=== PATIENT | female | born 1935 | race Caucasian/White ===

== ENCOUNTER 2018-09-21 16:59 | Observation (INO) ==
[2018-09-21 17:58] LABS: Basophils % 0.4 %; Eosinophils # 0.2 K/mcL (0.0-0.6); Eosinophils % 2.2 %; Hematocrit 34.3 % (35.3-44.9); Hemoglobin 11.3 g/dL (11.5-15.4); Immature Granulocytes % 0.2 % (0-4); Lymphocytes % 25.2 %; Mean Corpuscular HGB Conc 32.9 g/dL (31.6-35.5); Mean Corpuscular Hemoglobin 32.6 pg (28.0-33.3); Mean Corpuscular Volume 98.8 fL (83.0-100.0); Mean Platelet Volume 8.6 fL (9.4-12.4); Monocytes # 0.7 K/mcL (0.0-1.3); Monocytes % 9.2 %; Platelet Count 320 K/mcL (140-400); Red Blood Count 3.47 M/mcL (3.82-4.97); Red Cell Distribution Width 13.8 % (11.5-14.5); Segmented Neutrophils % 62.8 %
[2018-09-21 18:20] LABS: Alanine Aminotransferase 17 Units/L (7-52); Albumin 3.7 g/dL (3.5-5.7); Albumin/Globulin Ratio 1.5 (1.1-2.2); Alkaline Phosphatase 46 Units/L (34-104); Aspartate Amino Transferase 23 Units/L (13-39); BUN/Creatinine Ratio 18 (6-26); Bilirubin,Direct 0.1 mg/dL (0.0-0.2); Bilirubin,Indirect 0.3 mg/dL (0.0-1.2); Bilirubin,Total 0.4 mg/dL (0.3-1.0); Blood Urea Nitrogen 29 mg/dL (8-23); Calcium 9.2 mg/dL (8.6-10.3); Carbon Dioxide 25 mEq/L (23-29); Chloride 99 mEq/L (98-107); Globulin 2.4 g/dL (2.4-3.5); Glucose 84 mg/dL (70-105); Osmolality,Calculated 279 (280-300); Potassium 4.1 mEq/L (3.5-5.1); Sodium 132 mEq/L (136-145); Total Protein 6.1 g/dL (6.4-8.9); Troponin I < 0.03 ng/mL (< 0.04); eGFR For Non-African Americans 31 (> 60)
[2018-09-21] MEDS ORDERED: 0.9 % Sodium Chloride 1,000 ML IVC ONE (18:57)
--- NOTE | 2018-09-21 18:57 | Emergency Department Note ---
Disposition Clinical Impression: Head injury, Chest pain, Frequent falls Disposition: Admitted As Inpatient Condition: Good Referrals: Rich Clayton DO [Primary Care Provider] - General Adult HPI - General Chief complaint: ED Arrhythmia/Palpitations Stated complaint: "sob,abnormal ekg sent from [facility]" Time Seen by Provider: 09/21/18 17:16 Source: patient, family Limitations: no limitations - History of Present Illness Pain Scale: 0 - Related Data Allergies Allergy/AdvReac Type Severity Reaction Status Date / Time clarithromycin [From Biaxin] AdvReac Hives Verified 09/21/18 17:07 ibuprofen [From Advil] AdvReac Hives Verified 09/21/18 17:07 Penicillins AdvReac Hives Verified 09/21/18 17:07 sulfamethoxazole AdvReac Hives Verified 09/21/18 17:07 [From Bactrim] trimethoprim [From Bactrim] AdvReac Hives Verified 09/21/18 17:07 Past Medical History - Past Medical History Medical history: Reports: COPD, dementia, GERD, hyperlipidemia, hypertension, myocardial infarction Psychiatric history: Reports: anxiety, depression - Social History Smoking Status: Never smoker Smokeless Tobacco Status: No Alcohol use: Reports: none Drug use: Reports: none, unknown Physical Exam - General Limitations: no limitations General appearance: alert Course Vital Signs Temperature 98.4 F 09/21/18 17:03 Pulse Rate 63 09/21/18 17:03 Respiratory Rate 16 09/21/18 17:03 Blood Pressure 90/58 09/21/18 17:03 O2 Sat by Pulse Oximetry 99 09/21/18 17:03 Temperature 98.4 F 09/21/18 17:11 Pulse Rate 63 09/21/18 17:11 Respiratory Rate 16 09/21/18 17:11 Blood Pressure 113/65 09/21/18 17:19 O2 Sat by Pulse Oximetry 99 09/21/18 17:11 Oxygen Delivery Oxygen Delivery Room Air Medical Decision Making - Lab Data Result diagrams: 09/21/18 17:48 09/21/18 17:48 Lab Results 09/21/18 09/21/18 09/21/18 Range/Units 17:48 17:48 17:48 WBC 8.0 (4.3-11.1) K/mcL RBC 3.47 L (3.82-4.97) M/mcL Hgb 11.3 L (11.5-15.4) g/dL Hct 34.3 L (35.3-44.9) % MCV 98.8 (83.0-100.0) fL MCH 32.6 (28.0-33.3) pg MCHC 32.9 (31.6-35.5) g/dL RDW 13.8 (11.5-14.5) % Plt Count 320 (140-400) K/mcL MPV 8.6 L (9.4-12.4) fL Immature Gran % 0.2 (0-4) % Seg Neutrophils % 62.8 % Lymphocytes % 25.2 % Monocytes % 9.2 % Eosinophils % 2.2 % Basophils % 0.4 % Neutrophils # 5.0 (1.6-8.9) K/mcL Lymphocytes # 2.0 (0.6-4.6) K/mcL Monocytes # 0.7 (0.0-1.3) K/mcL Eosinophils # 0.2 (0.0-0.6) K/mcL Basophils # 0.0 (0.0-0.2) K/mcL Sodium 132 L (136-145) mEq/L Potassium 4.1 (3.5-5.1) mEq/L Chloride 99 (98-107) mEq/L Carbon Dioxide 25 (23-29) mEq/L BUN 29 H (8-23) mg/dL Creatinine 1.58 H (0.60-1.20) mg/dL Est GFR ( Amer) 38 L (> 60) Est GFR (Non-Af Amer) 31 L (> 60) BUN/Creatinine Ratio 18 (6-26) Glucose 84 (70-105) mg/dL Calculated Osmolality 279 L (280-300) Calcium 9.2 (8.6-10.3) mg/dL Total Bilirubin 0.4 (0.3-1.0) mg/dL Direct Bilirubin 0.1 (0.0-0.2) mg/dL Indirect Bilirubin 0.3 (0.0-1.2) mg/dL AST 23 (13-39) Units/L ALT 17 (7-52) Units/L Alkaline Phosphatase 46 (34-104) Units/L Troponin I < 0.03 (< 0.04) ng/mL B-Natriuretic Peptide 145 H (Less than 100) pg/mL Serum Total Protein 6.1 L (6.4-8.9) g/dL Albumin 3.7 (3.5-5.7) g/dL Globulin 2.4 (2.4-3.5) g/dL Albumin/Globulin Ratio 1.5 (1.1-2.2) Attestation Statement - Attestation Attestation: I examined this patient and my medical decision-making was reviewed with the Resident Physician. I agree with the documented findings, disposition and treatment plan as described except to the extent set forth below. 83-year-old female presents emergency room for near syncope and collapse. Patient was at home fell and hit her head today. States she passes out a lot and has a lot of falls. She is complaining of chest pain as well. Patient needs to be admitted for head injury observation as well as chest pain workup. No significant lab findings at this time. CT of the head and neck was unremarkable.
--- NOTE | 2018-09-21 19:57 | Emergency Department Note ---
Disposition Clinical Impression: Frequent falls Head injury Qualifiers: Encounter type: initial encounter Qualified Code(s): S09.90XA - Unspecified injury of head, initial encounter Chest pain Qualifiers: Chest pain type: unspecified Qualified Code(s): R07.9 - Chest pain, unspecified Disposition: Admitted As Inpatient Condition: Good Referrals: Rich Clayton DO [Primary Care Provider] - Forms: ED Satisfaction Letter General Adult HPI - General Chief complaint: ED Arrhythmia/Palpitations Stated complaint: "sob,abnormal ekg sent from [facility]" Time Seen by Provider: 09/21/18 17:16 Source: patient, family Limitations: no limitations Nursing Notes Reviewed: Yes Vital Signs Reviewed: Yes - History of Present Illness HPI Narrative: Patient is an 83-year-old female who presents to the ED one day after sustaining fall due to lightheadedness/dizziness/vertigo. The patient states that she has been experiencing progressively worsening weakness for a number of months worsening within the past 5 days. Patient states this morning she fell and hit her head on concrete feeling that her head bounced off the floor. Pa bashir was put into cervical collar with CT scan of the head and neck ordered. Patient initially states that she was on blood thinners but states that "I take a bucket full of meds and I am not sure about what I take". PT/INR was ordered to assess for coagulation status. Patient later recanted her previous statements and stated that she does not believe that she is on blood thinners but is on blood pressure medication. The patient admits to multiple recurrent falls which have progressively occurred more often recently. Patient admits to headache and admits to tinnitus as well as shortness of breath but denies vision change, chest pain, nausea/vomiting/blood in her urine or stool, or numb ness/tingling. Onset (ago): week(s) Location: head Radiation: non-radiation Pain Scale: 0 - Related Data Home Medications Medication Instructions Recorded Confirmed Albuterol Sulfate [Albuterol 2 puff IH Q6H PRN 09/21/18 Inhaler] Calcium Carbonate/Vitamin D3 1 tab PO BID 09/21/18 [Calcium 600-Vit D3 400 Tablet] HYDROcodone/Acet 5/325 mg [[place] 1 tab PO Q6H PRN 09/21/18 5-325 mg] Loratadine [Claritin] 10 mg PO DAILY 09/21/18 MethylPREDNISolone 4 mg PO AD 09/21/18 [MethylPREDNISolone Dose Pack] Midodrine [ProAmatine] 5 mg PO TID 09/21/18 Nortriptyline [Pamelor] 25 mg PO HS 09/21/18 PARoxetine HCl [Paroxetine HCl] 20 mg PO DAILY 09/21/18 Pregabalin [Lyrica] 25 mg PO BID 09/21/18 Ranitidine HCl [Acid Machine Steak Tenderizer] 150 mg PO DAILY 09/21/18 Ranolazine [Ranexa] 1,000 mg PO BID 09/21/18 amLODIPine [Norvasc] 5 mg PO DAILY 09/21/18 Allergies Allergy/AdvReac Type Severity Reaction Status Date / Time clarithromycin [From Biaxin] AdvReac Hives Verified 09/21/18 17:07 ibuprofen [From Advil] AdvReac Hives Verified 09/21/18 17:07 Penicillins AdvReac Hives Verified 09/21/18 17:07 sulfamethoxazole AdvReac Hives Verified 09/21/18 17:07 [From Bactrim] trimethoprim [From Bactrim] AdvReac Hives Verified 09/21/18 17:07 All systems ED: reviewed and negative except as stated. Review of Systems: As Per HPI Constitutional: Reports: weakness Eyes: Denies: vision change Cardiovascular: Denies: chest pain Respiratory: Reports: dyspnea Gastrointestinal: Denies: abdominal pain, nausea, vomiting, hematochezia Genitourinary: Denies: hematuria Musculoskeletal: Reports: neck pain. Denies: back pain Neurological: Reports: headache, weakness. Denies: numbness, paresthesias Past Medical History - Past Medical History Medical history: Reports: COPD, dementia, GERD, hyperlipidemia, hypertension, myocardial infarction Psychiatric history: Reports: anxiety, depression - Social History Smoking Status: Never smoker Smokeless Tobacco Status: No Alcohol use: Reports: none Drug use: Reports: none, unknown Physical Exam - General Limitations: no limitations General appearance: alert, in no apparent distress - Head Head exam: atraumatic, normocephalic, normal inspection - Eye Eye exam: Present: normal appearance, PERRL, EOMI. Absent: scleral icterus, conjunctival injection - Neck Neck exam: Present: trachea midline - Chest Chest inspection: Present: normal inspection, symmetric chest wall rise - Respiratory Respiratory exam: Present: normal lung sounds bilaterally. Absent: respiratory distress, wheezes, stridor, accessory muscle use, prolonged expiratory phase - Cardiovascular Cardiovascular exam: Present: regular rate, normal rhythm, normal heart sounds, +S1, +S2. Absent: JVD, +S3, +S4 - Abdominal Exam Abdominal exam: Present: soft, Non-Tender, normal bowel sounds. Absent: distention, guarding, rebound, rigidity, organomegaly - Neurological Exam Neurological exam: Present: alert, oriented X3 - Psychiatric Psychiatric exam: Present: normal affect, normal mood - Skin Skin exam: Present: warm, dry, intact, normal color. Absent: cyanosis, diaphoresis Course Course Narrative: Patient history, review systems, physical exam is concerning for intracranial pathology, cardiopulmonary process, or infectious etiology as well as unknown anticoagulation status. CBC, BMP, LFT, EKG, old EKG, troponin, BNP, urinalysis, chest x-ray, CT scan of the head and neck and PT INR will be performed to assess for potential underlying etiologies. Vital Signs Temperature 98.4 F 09/21/18 17:03 Pulse Rate 63 09/21/18 17:03 Respiratory Rate 16 09/21/18 17:03 Blood Pressure 90/58 09/21/18 17:03 O2 Sat by Pulse Oximetry 99 09/21/18 17:03 Temperature 98.4 F 09/21/18 17:11 Pulse Rate 63 09/21/18 17:11 Respiratory Rate 16 09/21/18 17:11 Blood Pressure 113/65 09/21/18 17:19 O2 Sat by Pulse Oximetry 99 09/21/18 17:11 Oxygen Delivery Oxygen Delivery Room Air Medical Decision Making - [facility] Narrative Medical decision making narrative: Patient labs are unremarkable, notably with an INR of 1. Imaging results are negative for acute osseous abnormality. There are degenerative changes noted consistent with the patient's history of osteopenia. Chest x-ray shows left basilar infiltrate or atelectasis. Patient will be admitted to the hospital for further monitoring of neurologic status and fall risk. Plan for admission discussed with the patient and her son and both are in agreement. Hospitalist accepts admission. - Lab Data Lab results reviewed: Yes I reviewed the patient's lab results. Result diagrams: 09/21/18 17:48 09/21/18 17:48 Lab Results 09/21/18 09/21/18 09/21/18 Range/Units 17:48 17:48 17:48 WBC 8.0 (4.3-11.1) K/mcL RBC 3.47 L (3.82-4.97) M/mcL Hgb 11.3 L (11.5-15.4) g/dL Hct 34.3 L (35.3-44.9) % MCV 98.8 (83.0-100.0) fL MCH 32.6 (28.0-33.3) pg MCHC 32.9 (31.6-35.5) g/dL RDW 13.8 (11.5-14.5) % Plt Count 320 (140-400) K/mcL MPV 8.6 L (9.4-12.4) fL Immature Gran % 0.2 (0-4) % Seg Neutrophils % 62.8 % Lymphocytes % 25.2 % Monocytes % 9.2 % Eosinophils % 2.2 % Basophils % 0.4 % Neutrophils # 5.0 (1.6-8.9) K/mcL Lymphocytes # 2.0 (0.6-4.6) K/mcL Monocytes # 0.7 (0.0-1.3) K/mcL Eosinophils # 0.2 (0.0-0.6) K/mcL Basophils # 0.0 (0.0-0.2) K/mcL PT (9.4-12.1) Seconds INR Sodium 132 L (136-145) mEq/L Potassium 4.1 (3.5-5.1) mEq/L Chloride 99 (98-107) mEq/L Carbon Dioxide 25 (23-29) mEq/L BUN 29 H (8-23) mg/dL Creatinine 1.58 H (0.60-1.20) mg/dL Est GFR ( Amer) 38 L (> 60) Est GFR (Non-Af Amer) 31 L (> 60) BUN/Creatinine Ratio 18 (6-26) Glucose 84 (70-105) mg/dL Calculated Osmolality 279 L (280-300) Calcium 9.2 (8.6-10.3) mg/dL Total Bilirubin 0.4 (0.3-1.0) mg/dL Direct Bilirubin 0.1 (0.0-0.2) mg/dL Indirect Bilirubin 0.3 (0.0-1.2) mg/dL AST 23 (13-39) Units/L ALT 17 (7-52) Units/L Alkaline Phosphatase 46 (34-104) Units/L Troponin I < 0.03 (< 0.04) ng/mL B-Natriuretic Peptide 145 H (Less than 100) pg/mL Serum Total Protein 6.1 L (6.4-8.9) g/dL Albumin 3.7 (3.5-5.7) g/dL Globulin 2.4 (2.4-3.5) g/dL Albumin/Globulin Ratio 1.5 (1.1-2.2) 09/21/18 Range/Units 17:48 WBC (4.3-11.1) K/mcL RBC (3.82-4.97) M/mcL Hgb (11.5-15.4) g/dL Hct (35.3-44.9) % MCV (83.0-100.0) fL MCH (28.0-33.3) pg MCHC (31.6-35.5) g/dL RDW (11.5-14.5) % Plt Count (140-400) K/mcL MPV (9.4-12.4) fL Immature Gran % (0-4) % Seg Neutrophils % % Lymphocytes % % Monocytes % % Eosinophils % % Basophils % % Neutrophils # (1.6-8.9) K/mcL Lymphocytes # (0.6-4.6) K/mcL Monocytes # (0.0-1.3) K/mcL Eosinophils # (0.0-0.6) K/mcL Basophils # (0.0-0.2) K/mcL PT 11.6 (9.4-12.1) Seconds INR 1.0 Sodium (136-145) mEq/L Potassium (3.5-5.1) mEq/L Chloride (98-107) mEq/L Carbon Dioxide (23-29) mEq/L BUN (8-23) mg/dL Creatinine (0.60-1.20) mg/dL Est GFR ( Amer) (> 60) Est GFR (Non-Af Amer) (> 60) BUN/Creatinine Ratio (6-26) Glucose (70-105) mg/dL Calculated Osmolality (280-300) Calcium (8.6-10.3) mg/dL Total Bilirubin (0.3-1.0) mg/dL Direct Bilirubin (0.0-0.2) mg/dL Indirect Bilirubin (0.0-1.2) mg/dL AST (13-39) Units/L ALT (7-52) Units/L Alkaline Phosphatase (34-104) Units/L Troponin I (< 0.04) ng/mL B-Natriuretic Peptide (Less than 100) pg/mL Serum Total Protein (6.4-8.9) g/dL Albumin (3.5-5.7) g/dL Globulin (2.4-3.5) g/dL Albumin/Globulin Ratio (1.1-2.2) - Radiology Data Radiology results reviewed: Yes I reviewed the patient's radiology results. Cervical Spine CT 09/21/18 17:24 IMPRESSION: No acute abnormality of the cervical spine. Mild degenerative changes cervical spine. D/ / Leonardo Granados / Leonardo Granados Interpreting Provider: Leonardo Granados Head CT 09/21/18 17:24 IMPRESSION: No acute intracranial abnormality. D/ / Moy Marrufo MD / Moy Marrufo MD Interpreting Provider: Moy Marrufo MD Chest X-Ray 09/21/18 17:27 IMPRESSION: Mild dependent left basilar opacification, possibly infiltrate or atelectasis. D/ / Joon Gifford MD / Joon Gifford MD Interpreting Provider: Joon Gifford MD - EKG Data EKG #1 EKG attestation: Yes I reviewed and interpreted this EKG. EKG results narrative: Patient EKG shows a sinus bradycardia with first degree heart block with a normal axis. Heart rate is 59 bpm, CA interval of 284 ms, QRS duration of 106 ms, QT/QTc interval 476/for some 4 ms. There are no significant ST segment elevations, depressions, abnormal T-wave inversions, pathologic Q's, or any other signs of acute ischemic change. At this time there is no prior EKG available for comparison.
[2018-09-21 20:20] LABS: Prothrombin Time 11.6 Seconds (9.4-12.1)
[2018-09-21 20:20] LABS: Bilirubin,Urine Small (Negative); Blood,Urine Negative (Negative); Clarity,Urine Cloudy (Clear); Color,Urine Dark Yellow (Yellow); Glucose,Urine (UA) Normal (Normal); Ketones,Urine Negative (Negative); Leukocyte Esterase,Urine Large (Negative); Nitrite,Urine Positive (Negative); PH,Urine 5.5 pH Units (5.0-8.0); Protein,Urine Trace mg/dL (Neg-Trace); Specific Gravity,Urine 1.026 (1.010-1.025); Urobilinogen,Urine Normal (Normal)
[2018-09-21 20:25] LABS: Bacteria,Urine Many per hpf (None-Few); Hyaline Casts,Urine None Seen per lpf (None-Few); RBC,Urine 0-3 per hpf (0-3); Squamous Epithelial Cell,Urine Many per lpf (None-Few); WBC,Urine TNTC per hpf (0-3)
[2018-09-22] MEDS ORDERED: Naloxone 0.4 MG/ML INJ IVP PRN (02:09)
--- NOTE | 2018-09-22 02:18 | Internal Med History&Physical ---
Date of Encounter: 09/22/18 Time of Encounter: 01:12 Internal Medicine - H&P: HPI Chief complaint: Weakness and falls Admitted From: Emergency Dept Plans for Post Hospital Care: Home History of present illness: Ms. Hinkle is a 83 year old female Patient presented to the emergency room with a couple day history of falls and shortness of breath. Says been going on chronically for quite a while but it is getting worse particularly in the last few days. She initially went to [facility] ER was evaluated and given oxygen and was sent home. However at home she was not improving, she remained weak and she wanted to be reevaluated. She has history of COPD, 3 heart attacks but no stents. She has a history of a fractured foot and ankle in 2015 which was a result of the fall. She walks with a walker to ambulate. She denies chest pain but does have shortness of breath that makes her chest feel tight. Prior to her arrival to the hospital patient was again feeling weak and fell and hit her head. The emergency room there is high concern for intracranial injury and she was placed in a c-collar and immediately CT scan was performed. Head CT demonstrated no acute intracranial abnormality, and cervical spine CT showed no acute abnormality of the cervical spine. Chest x-ray showed mild dependent left basilar opacification possibly infiltrate or atelectasis. Patient's CBC was within normal limits, BMP demonstrated an PANCHO with a creatinine of 1.58. Patient's baseline is near 1. Patient's initial troponin was undetectable as well. Due to her recurrent falls, she was admitted to the hospital for further monitoring. Upon my assessment, patient's urinalysis had resulted and appears the patient has a urinary tract infection. She has had these in the past she states. With her COPD she has required breathing treatments but she is not on home oxygen. She denies pain at this time, as well as nausea, vomiting, diarrhea, constipation chest pain and abdominal pain. I discussed with the patient her CODE STATUS and she wishes to not have chest compressions performed but would be okay with intubation if it was to stabilize her. She says "if all hope is lost, let me go." Past Med Surg Social Fam HX - Past Medical History Medical history: COPD, dementia, GERD, hyperlipidemia, hypertension, myocardial infarction Psychiatric history: anxiety, depression - Past Surgical History Additional surgical history: bowel surgery (mesh) - Social History Smoking Status: Never smoker Smokeless Tobacco Status: No Alcohol use: none Drug use: none, unknown Internal Medicine - H&P: Meds Albuterol Sulfate [Albuterol Inhaler] 2 puff IH Q6H PRN 09/21/18 [History] Atorvastatin [Lipitor] 40 mg PO HS 09/21/18 [History] Calcium Carbonate/Vitamin D3 [Calcium 600-Vit D3 400 Tablet] 1 tab PO BID 09/21/18 [History] Fluticasone Propionate Nasal [Flonase] 1 spray NS DAILY PRN 09/21/18 [History] Furosemide [Lasix] 20 mg PO DAILY 09/21/18 [History] HYDROcodone/Acet 5/325 mg [[place] 5-325 mg] 1 tab PO BID 09/21/18 [History] Loratadine [Claritin] 10 mg PO DAILY 09/21/18 [History] Midodrine [ProAmatine] 5 mg PO TID 09/21/18 [History] PARoxetine HCl [Paroxetine HCl] 20 mg PO DAILY 09/21/18 [History] Ranitidine HCl [Acid Ash Worker] 150 mg PO BID 09/21/18 [History] Ranolazine [Ranexa] 1,000 mg PO BID 09/21/18 [History] amLODIPine [Norvasc] 5 mg PO DAILY 09/21/18 [History] Furosemide [Lasix] 20 mg PO DAILY 09/22/18 [History] Lisinopril [Zestril] 10 mg PO DAILY 09/22/18 [History] Nortriptyline [Pamelor] 25 mg PO HS 09/22/18 [History] Pregabalin [Lyrica] 25 mg PO ONCE 09/22/18 [History] Allergy/AdvReac Type Severity Reaction Status Date / Time clarithromycin [From Biaxin] AdvReac Hives Verified 09/21/18 17:07 ibuprofen [From Advil] AdvReac Hives Verified 09/21/18 17:07 Penicillins AdvReac Hives Verified 09/21/18 17:07 sulfamethoxazole AdvReac Hives Verified 09/21/18 17:07 [From Bactrim] trimethoprim [From Bactrim] AdvReac Hives Verified 09/21/18 17:07 All Systems PM: A 10-system review of systems was performed and is negative for pertinent findings except as documented above in the HPI. - Constitutional Vitals: Temp Pulse Resp BP Pulse Ox 98.4 F 63 17 119/64 96 09/21/18 17:11 09/21/18 17:11 09/21/18 21:11 09/21/18 21:11 09/21/18 21:50 General appearance: Present: cooperative, A&O X 3, pleasant, no acute distress, answers questions appropriately Exam: As above - Head Head exam: Present: normal inspection - Eye Eye exam: Present: EOMI, normal appearance - Neck Neck exam general surgery: Present: full ROM - Respiratory Respiratory exam: Present: rales. Absent: chest wall tenderness, decreased breath sounds, CTAB, respiratory distress, rhonchi, wheezes Additional comments: Left worse than right at the bases. - Cardiovascular Cardiovascular exam: Present: RRR. Absent: diastolic murmur, systolic murmur - GI/Abdominal GI/Abdominal exam: Present: normal bowel sounds, soft. Absent: tenderness - Extremities Exam Extremities exam: Absent: calf tenderness, pedal edema, tenderness, warm, radial pulses palpable and symmetrical - Neurological Exam Neurological exam: Present: no focal deficits, strengths equal and symetr throughout. Absent: motor sensory deficit, facial droop, speech deficit - Skin Skin exam: Present: dry, normal color, warm Internal Med - H&P Results - Labs CBC & Chem 7: 09/22/18 02:33 09/22/18 02:33 Labs: Short CBC 09/21/18 Range/Units 17:48 WBC 8.0 (4.3-11.1) K/mcL Hgb 11.3 L (11.5-15.4) g/dL Hct 34.3 L (35.3-44.9) % Plt Count 320 (140-400) K/mcL Neutrophils # 5.0 (1.6-8.9) K/mcL BMP 09/21/18 17:48 Sodium 132 L Potassium 4.1 Chloride 99 Carbon Dioxide 25 BUN 29 H Creatinine 1.58 H Glucose 84 Calcium 9.2 Cardiac Enzymes 09/21/18 Range/Units 17:48 Troponin I < 0.03 (< 0.04) ng/mL Liver Function 09/21/18 Range/Units 17:48 Total Bilirubin 0.4 (0.3-1.0) mg/dL Direct Bilirubin 0.1 (0.0-0.2) mg/dL AST 23 (13-39) Units/L ALT 17 (7-52) Units/L Alkaline Phosphatase 46 (34-104) Units/L Albumin 3.7 (3.5-5.7) g/dL Urine 09/21/18 Range/Units 19:55 Urine Color Dark Yellow (Yellow) Urine Clarity Cloudy A (Clear) Urine pH 5.5 (5.0-8.0) pH Units Ur Specific [place] 1.026 H (1.010-1.025) Urine Protein Trace (Neg-Trace) mg/dL Urine Glucose (UA) Normal (Normal) mg/dL - Impressions ITS Impressions Cervical Spine CT 09/21/18 17:24 IMPRESSION: No acute abnormality of the cervical spine. Mild degenerative changes cervical spine. D/ / Leonardo Granados / Leonardo Granados Interpreting Provider: Leonardo Granados Head CT 09/21/18 17:24 IMPRESSION: No acute intracranial abnormality. D/ / Moy Marrufo MD / Moy Marrufo MD Interpreting Provider: Moy Marrufo MD Chest X-Ray 09/21/18 17:27 IMPRESSION: Mild dependent left basilar opacification, possibly infiltrate or atelectasis. D/ / Joon Gifford MD / Joon Gifford MD Interpreting Provider: Joon Gifford MD - Assessment and plan (1) Urinary tract infection Current Visit: Yes Status: Acute Assessment and plan: Patient's UA positive for nitrites, large leukocyte esterase but negative for blood. She denies dysuria, but she has had urinary tract infections in the past. We have no previous microbiology in her chart. Obtain urine culture prior to starting antibiotics Start ceftriaxone 1 g daily once urine culture obtained Continue to monitor for worsening signs of infection Follow-up culture results when available Qualifiers: Urinary tract infection type: acute cystitis Hematuria presence: without hematuria Qualified Code(s): N30.00 - Acute cystitis without hematuria (2) Shortness of breath Current Visit: Yes Status: Acute Assessment and plan: Patient has baseline COPD. Start breathing treatments, as well as steroids. Supplemental oxygen as needed (3) Pneumonia Current Visit: Yes Status: Acute Assessment and plan: Possible lung infiltrate on chest x-ray, patient also has had a cough lately. Patient has multiple antibiotic allergies, will try ceftriaxone and Levaquin for now. Starting ceftriaxone 1 g daily for UTI, starting levofloxacin to cover lung pathology Obtain blood cultures Qualifiers: Pneumonia type: due to unspecified organism Laterality: left Lung location: lower lobe of lung Qualified Code(s): J18.1 - Lobar pneumonia, unspecified organism (4) Head injury Current Visit: Yes Status: Acute Assessment and plan: Patient had a fall resulting in head injury, however imaging does not show acute intracranial abnormalities. Continue to monitor PT OT consult in the morning Qualifiers: Encounter type: initial encounter Qualified Code(s): S09.90XA - Unspecified injury of head, initial encounter (5) Frequent falls Current Visit: Yes Status: Acute Assessment and plan: PT OT consult in the morning Follow-up recommendations (6) Chest pain Current Visit: Yes Status: Acute Assessment and plan: While patient did not specifically report chest pain she did report chest tightness. In's in the emergency room were undetectable. Continue cardiac monitoring Continue to trend troponins Qualifiers: Chest pain type: unspecified Qualified Code(s): R07.9 - Chest pain, unspecified (7) DVT prophylaxis Current Visit: Yes Status: Acute Assessment and plan: Heparin subcutaneous - Time Spent With Patient Total time spent is greater than 50% in coordination of care (as documented) at patient's floor/unit and/or counseling patient: Greater than 35 minutes
[2018-09-22 02:47] LABS: Hematocrit 33.4 % (35.3-44.9); Hemoglobin 11.2 g/dL (11.5-15.4); Mean Corpuscular HGB Conc 33.5 g/dL (31.6-35.5); Mean Corpuscular Hemoglobin 32.9 pg (28.0-33.3); Mean Corpuscular Volume 98.2 fL (83.0-100.0); Mean Platelet Volume 8.6 fL (9.4-12.4); Platelet Count 299 K/mcL (140-400); Red Cell Distribution Width 13.5 % (11.5-14.5)
[2018-09-22 03:16] LABS: Calcium 8.3 mg/dL (8.6-10.3); Potassium 3.9 mEq/L (3.5-5.1)
[2018-09-22] MEDS ORDERED: Ipratropium/Albuterol Neb 3 ML IH PRN (06:22)
[2018-09-22] MEDS: *HR* Heparin 5,000 UNIT/ML VIAL SQ SCH ×2 (06:25→16:17)
[2018-09-22] MEDS: cefTRIAXone 1,000 MG in Water for inj. (sterile) 20 ML 10 ML IVP SCH (08:01)
[2018-09-22] MEDS ORDERED: Levofloxacin 750 MG/150 ML 750 MG/150 ML BAG IVPB SCH ×2 (09:00)
--- NOTE | 2018-09-22 09:16 | Event Note ---
Date of Encounter: 09/22/18 Time of Encounter: 09:08 Patient seen and examined earlier this am by hospitalist. I did examine patient st bedside, she states she feels much better voices concerns about falling and that she is to be on oxygen however her insurance declined oxygen. She has not voiced any SOB or CP at this time . Denies any urinary complaints. Will cont with O2 ATB pending cultures- PT/OT consulted awaiting recommendations. Hemodynamically stable at this time
[2018-09-22] MEDS ORDERED: Mag Hydrox/Al Hydrox/Simeth 30 ML UDC PO PRN (15:46)
[2018-09-22] MEDS: Acetaminophen 325 MG TABLET PO PRN (22:15)
[2018-09-23] MEDS: *HR* Heparin 5,000 UNIT/ML VIAL SQ SCH (05:20)
[2018-09-23 07:31] VITALS: BP 132/55
[2018-09-23] MEDS: cefTRIAXone 1,000 MG in Water for inj. (sterile) 20 ML 10 ML IVP SCH (07:59)
--- NOTE | 2018-09-23 09:10 | Discharge Summary ---
- NOTES TO OUTPATIENT PROVIDER Notes to Outpatient Provider: Presented after expereincing fall at home- weakness- found to have UTI and possible pneumonia - Levaquin Orders not resulted at time of discharge: Pending orders 09/21/18 17:27 ECG 12 lead ECG [ECG] Stat 09/22/18 06:20 Culture,Urine [RM] Routine 09/22/18 07:23 Culture,Blood [BC] Routine 09/23/18 07:42 EKG [ECG 12 lead ECG] [ECG] Routine Date of Encounter: 09/23/18 Time of Encounter: 08:52 - Discharge Diagnosis (1) Chest pain Priority: Secondary Status: Acute Qualifiers: Chest pain type: unspecified Qualified Code(s): R07.9 - Chest pain, unspecified (2) Frequent falls Priority: Primary Status: Acute (3) Pneumonia Priority: Secondary Status: Acute Qualifiers: Pneumonia type: due to unspecified organism Laterality: left Lung location: lower lobe of lung Qualified Code(s): J18.1 - Lobar pneumonia, unspecified organism (4) Urinary tract infection Priority: Secondary Status: Acute Qualifiers: Urinary tract infection type: acute cystitis Hematuria presence: without hematuria Qualified Code(s): N30.00 - Acute cystitis without hematuria Hospital course: Ms. Hinkle is a 83 year old female past medical history of COPD dementia and GERD hyperlipidemia hypertension myocardial infarction patient presented to [facility] ED after experiencing a couple day history of falls and shortness of breath. Patient has been experiencing frequent falls over the past few weeks. She initially went to [facility] emergency room was evaluated and given oxygen and was sent home however while at home she continued to feel weak and sustained a fall striking her head she did not lose consciousness. She has been expereincing chest tightness while coughing She presented to the emergency department and underwent CT scan which did not show any acute intracranial abnormality and cervical spine CT was without fractures. Chest x-ray did show some mild dependent left basilar opacification possibly infiltrate or atelectasis. Lab work did demonstrate PANCHO urinalysis did reveal urinary tract infections troponins were negative 3 she was given oxygen as well as breathing treatments blood cultures 2 were drawn. EKG with no acute ST-T wave abnormalities patient was given Levaquin IV was evaluated by PT OT recommending home health she also qualify for home oxygen. Lab work return to baseline Currently patient denies any chest pain or shortness of breath advised patient to follow-up with primary care provider advised patient she will be receiving a ascription for antibiotic Levaquin and to take medications as prescribed. Patient verbalized understanding she is hemodynamically stable at this time ready for discharge. Discharge discussed with: patient - Time Spent with Patient Total time spent providing and/or coordinating discharge services: - Discharge Medications Prescriptions: Levofloxacin [Levaquin] 750 mg PO Q48H #3 tablet Home Medications: Albuterol Sulfate [Albuterol Inhaler] 2 puff IH Q6H PRN 09/21/18 [History] Atorvastatin [Lipitor] 40 mg PO HS 09/21/18 [History] Calcium Carbonate/Vitamin D3 [Calcium 600-Vit D3 400 Tablet] 1 tab PO BID 09/21/18 [History] Fluticasone Propionate Nasal [Flonase] 1 spray NS DAILY PRN 09/21/18 [History] Furosemide [Lasix] 20 mg PO DAILY 09/21/18 [History] HYDROcodone/Acet 5/325 mg [[place]amp[place] 5-325 mg] 1 tab PO BID 09/21/18 [History] Loratadine [Claritin] 10 mg PO DAILY 09/21/18 [History] Midodrine [ProAmatine] 5 mg PO TID 09/21/18 [History] PARoxetine HCl [Paroxetine HCl] 20 mg PO DAILY 09/21/18 [History] Ranitidine HCl [Acid Accredited Legal Secretary] 150 mg PO BID 09/21/18 [History] Ranolazine [Ranexa] 1,000 mg PO BID 09/21/18 [History] amLODIPine [Norvasc] 5 mg PO DAILY 09/21/18 [History] Aspirin [Adult Aspirin Regimen] 81 mg PO DAILY 09/22/18 [History] Furosemide [Lasix] 20 mg PO DAILY 09/22/18 [History] Lisinopril [Zestril] 10 mg PO DAILY 09/22/18 [History] Nortriptyline [Pamelor] 25 mg PO HS 09/22/18 [History] Pregabalin [Lyrica] 25 mg PO ONCE 09/22/18 [History] Levofloxacin [Levaquin] 750 mg PO Q48H #3 tablet 09/23/18 [Rx] Allergies/Adverse Reactions: Allergy/AdvReac Type Severity Reaction Status Date / Time clarithromycin [From Biaxin] AdvReac Hives Verified 09/21/18 17:07 ibuprofen [From Advil] AdvReac Hives Verified 09/21/18 17:07 Penicillins AdvReac Hives Verified 09/21/18 17:07 sulfamethoxazole AdvReac Hives Verified 09/21/18 17:07 [From Bactrim] trimethoprim [From Bactrim] AdvReac Hives Verified 09/21/18 17:07 Date of admission: 09/21/18 20:29 Primary care physician: Rich Clayton DO Consults: 09/22/18 02:12 Consult to Physical Therapy [CONS] Routine Comment: Evaluate, develop and implement POC Reason for Consult: Patient has had frequent falls at home, states that she does not get dizzy, she just falls down without warning. Recently fell and hit her head. Does patient have active BEDREST order?: No Is patient medically & hemodynamically stable?: Yes 09/22/18 06:22 Consult to Nurse Navigator [CONS] Routine Comment: Discharging clinician: Charu Hurst Anticipated date of discharge: 09/23/18 - Constitutional Vitals: Temp Pulse Resp BP Pulse Ox 98.7 F 63 16 132/55 98 09/23/18 07:30 09/23/18 07:30 09/23/18 07:30 09/23/18 07:30 09/23/18 07:30 General appearance: Present: cooperative, A&O X 3, pleasant, no acute distress, answers questions appropriately Exam: . - Head Head exam: Present: atraumatic, normocephalic - Eye Eye exam: Present: PERRL, conjuntiva pink, sclera anicteric Pupils: Present: PERRL - Neck Neck exam general surgery: Present: supple, trachea midline. Absent: lymphadenopathy - Respiratory Respiratory exam: Present: CTAB. Absent: accessory muscle use, rales, rhonchi, wheezes - Cardiovascular Cardiovascular exam: Present: RRR, +S1, +S2. Absent: diastolic murmur, gallop, rubs, systolic murmur - GI/Abdominal GI/Abdominal exam: Present: normal bowel sounds, soft, no peritoneal signs. Absent: distended, tenderness - Extremities Exam Extremities exam: Present: warm, radial pulses palpable and symmetrical. Absent: calf tenderness, cyanotic, pedal edema - Neurological Exam Neurological exam: Present: CN II-XII intact, oriented X3, no focal deficits. Absent: pronater drift, facial droop, speech deficit - Skin Skin exam: Present: dry, intact - Patient Status Disposition: Home Health Service Condition: Good Functional capacity at discharge: uses cane/walker Overall status at discharge: patient is back to baseline - Discharge Instructions Instructions: Chest Pain (DC) Follow Up With: Iftikhar Draper DO [Partnered Physician] - 09/29/18 1:00 pm Additional Instructions: A referral has been made to [facility] for Physical Therapy. They will call you within 48 hours to set up admission date and time. If you need to contact them for any reason you can call #[phone]. New home oxygen set up has been completed through [employer]. You will need to call them when you get home to have them deliver equipment. Their contact information is #[phone]. - Diet and Activity Activity: increase activity as tolerated, wear oxygen at all times Diet: advance to your usual diet
[2018-09-23] MEDS: Acetaminophen 325 MG TABLET PO PRN (09:24)
--- NOTE | 2018-09-23 09:31 | Physician Discharge Referral ---
Home Health/Hosp Referral Info Transfer to: Home Health Attending Provider: Alisa Hurst Provider in Charge Post Discharge: PCP - Diagnosis (1) Chest pain Priority: Secondary Status: Acute (2) Frequent falls Priority: Primary Status: Acute (3) Pneumonia Priority: Secondary Status: Acute (4) Urinary tract infection Priority: Secondary Status: Acute - Respiratory Orders Oxygen / L per min (2L NC) Smoking Cessation: Smoking cessation has been advised. For more information, call the [place] Tobacco Quit Line at 2-043-EFWY-NOW. - Diet/Nutrition Diet/Nutrition Orders: Regular - Activity Activity Orders: Walker - Services Needed Following services are medically necessary services: Physical Therapy - Transfer Medications Prescriptions: Levofloxacin [Levaquin] 750 mg PO Q48H #3 tablet Home Medications: Albuterol Sulfate [Albuterol Inhaler] 2 puff IH Q6H PRN 09/21/18 [History] Atorvastatin [Lipitor] 40 mg PO HS 09/21/18 [History] Calcium Carbonate/Vitamin D3 [Calcium 600-Vit D3 400 Tablet] 1 tab PO BID 09/21/18 [History] Fluticasone Propionate Nasal [Flonase] 1 spray NS DAILY PRN 09/21/18 [History] Furosemide [Lasix] 20 mg PO DAILY 09/21/18 [History] HYDROcodone/Acet 5/325 mg [Colony 5-325 mg] 1 tab PO BID 09/21/18 [History] Loratadine [Claritin] 10 mg PO DAILY 09/21/18 [History] Midodrine [ProAmatine] 5 mg PO TID 09/21/18 [History] PARoxetine HCl [Paroxetine HCl] 20 mg PO DAILY 09/21/18 [History] Ranitidine HCl [Acid Cable Stretcher And Tester] 150 mg PO BID 09/21/18 [History] Ranolazine [Ranexa] 1,000 mg PO BID 09/21/18 [History] amLODIPine [Norvasc] 5 mg PO DAILY 09/21/18 [History] Aspirin [Adult Aspirin Regimen] 81 mg PO DAILY 09/22/18 [History] Furosemide [Lasix] 20 mg PO DAILY 09/22/18 [History] Lisinopril [Zestril] 10 mg PO DAILY 09/22/18 [History] Nortriptyline [Pamelor] 25 mg PO HS 09/22/18 [History] Pregabalin [Lyrica] 25 mg PO ONCE 09/22/18 [History] Levofloxacin [Levaquin] 750 mg PO Q48H #3 tablet 09/23/18 [Rx] Allergies/Adverse Reactions: Allergy/AdvReac Type Severity Reaction Status Date / Time clarithromycin [From Biaxin] AdvReac Hives Verified 09/21/18 17:07 ibuprofen [From Advil] AdvReac Hives Verified 09/21/18 17:07 Penicillins AdvReac Hives Verified 09/21/18 17:07 sulfamethoxazole AdvReac Hives Verified 09/21/18 17:07 [From Bactrim] trimethoprim [From Bactrim] AdvReac Hives Verified 09/21/18 17:07 Certification: Further, I certify that my clinical findings support that this patient is homebound (i.e. absences from home require considerable and taxing effort and are for medical reasons or baptism services or infrequently or short duration when for other reasons) because: Homebound Reason: Severity of cardiac or pulmonary status limits activity tolerance Attestation: My signature below is to certify that this patient is under my care and that I, or nurse practitioner, or a physician's dental ceramist assistant working with me, has a [id number] encounter with this patient.
[2018-09-24] MEDS ORDERED: Levofloxacin 750 MG/150 ML 750 MG/150 ML BAG IVPB SCH (09:00)
== END 2018-09-23 12:32 | disposition home health service (06) ==
LOC: 3BNU 16:59 → EMEROOARM 16:59 → 3BNU 21:26
PROVIDERS: ADMIT Family Medicine; ATTEND Family Medicine